=== PATIENT | male | born 1955 | race Caucasian/White ===

== ENCOUNTER 2022-07-25 22:44 | Emergency (ER) | payer OTHER ==
[~2022-07-25] VITALS: Ht 177.8 cm; Wt 81.6 kg
--- NOTE | 2022-07-25 23:06 | NUR ---
Ambulated to room with family, informed of plan of care and placed on monitor. No s/s of any distress noted, denies any changes in vision at this time. Awaiting MD exam.
[2022-07-25] MEDS ORDERED: TETRACAINE HCL 0.5% OPHT DROP 2 ML BOTTLE ONE (23:21)
[2022-07-25] MEDS ORDERED: FLUORESCEIN SODIUM 1 MG STRIP ONE (23:22)
[2022-07-25] MEDS ORDERED: TETRACAINE HCL 0.5% OPHT DROP 2 ML BOTTLE OP ONE (23:30)
[2022-07-25] MEDS ORDERED: FLUORESCEIN SODIUM 1 MG STRIP OP ONE (23:30)
[2022-07-26 00:08] VITALS: BP 158/76
--- NOTE | 2022-07-26 00:09 | NUR ---
ACI given states understanding, remains stable for discharge home with family.
== END 2022-07-26 00:10 | disposition home or self-care (01) ==
LOC: ER 22:44
DX: H11.32 Conjunctival hemorrhage, left eye (principal); E11.9 Type 2 diabetes mellitus without complications; E78.00 Pure hypercholesterolemia, unspecified
CPT/HCPCS: A4663

== ENCOUNTER 2023-10-30 16:31 | Emergency (ER) | payer OTHER ==
[~2023-10-30] VITALS: Ht 177.8 cm; Wt 81.6 kg
[2023-10-30] MEDS ORDERED: INSULIN (17:01)
[2023-10-30] MEDS ORDERED: PAXIL (17:01)
[2023-10-30 17:54] LABS: *BILIRUBIN,URIN NEGATIVE (NEGATIVE); *BLOOD, URINE NEGATIVE (NEGATIVE); *CLARITY,URINE CLEAR (CLEAR); *COLOR,URINE YELLOW (YELLOW); *KETONES,URINE NEGATIVE (NEGATIVE); *PROTEIN,URINE NEGATIVE (NEGATIVE); *UROBILINOGEN,URINE 0.2 E.U./dl (NORMAL); LEUKOCYTE ESTERASE ,URINE NEGATIVE (NEGATIVE); NITRITE, URINE NEGATIVE (NEGATIVE); UGLUCOSE TRACE (NEGATIVE)
[2023-10-30] MEDS ORDERED: CEFTRIAXONE 1 G VIAL ONE (18:11)
[2023-10-30] MEDS ORDERED: AZITHROMYCIN 250 MG TABLET ONE (18:11)
[2023-10-30 18:17] LABS: BASOPHILS % (AUTO) 0.5 % (0.0-2.0); EOSINOPHILS % (AUTO) 0.7 % (0.0-7.0); HEMATOCRIT 36.5 % (36.7-47.1); HEMOGLOBIN 12.2 g/dL (12.5-16.3); LYMPHOCYTES # (AUTO) 0.8 K/uL (0.8-4.8); LYMPHOCYTES % (AUTO) 12.5 % (20.5-51.5); MEAN CORPUSCULAR HEMOGLOBIN 29.6 uug (23.8-33.4); MEAN CORPUSCULAR HGB CONC 33 g/dL (32.5-36.3); MEAN CORPUSCULAR VOLUME 88.5 fL (73.0-96.2); MONOCYTES # (AUTO) 0.8 K/uL (0.1-1.30); MONOCYTES % (AUTO) 13.1 % (0.0-11.0); NEUTROPHILS # (AUTO) 4.4 K/uL (1.8-8.9); NEUTROPHILS % (AUTO) 73.2 % (38.5-71.5); PLATELET COUNT (AUTO) 237 K/uL (152-348); RED BLOOD CELL COUNT(AUTO) 4.12 MIL/uL (4.06-5.63); RED CELL DISTRIBUTION WIDTH 13.9 % (12.1-16.2)
[2023-10-30 18:18] LABS: RBC,URINE NONE SEEN /HPF (0-3); SQUAMOUS EPITHELIAL CELL,UR FEW /HPF (NONE SEEN); WBC,URINE NONE SEEN /HPF (0-3)
[2023-10-30 18:24] LABS: DIFFERENTIAL COMMENT 1
[2023-10-30 18:27] LABS: CALCIUM 9.2 mg/dL (8.5-10.1); CARBON DIOXIDE 28 mmol/L (21-32); CHLORIDE 100 mmol/L (98-107); CREATININE 1.2 mg/dL (0.6-1.3); GLUCOSE 267 mg/dL (74-106); POTASSIUM 4.2 mmol/L (3.5-5.1); SODIUM SERUM 136 mmol/L (136-145); UREA NITROGEN, BLOOD 17 mg/dL (7-18)
[2023-10-30] MEDS: IV NORMAL SALINE 1000 ML BAG IV ONE (18:38)
[2023-10-30 18:39] LABS: ALANINE AMINOTRANSFERASE 19 U/L (16-63); ALBUMIN 3.8 g/dL (3.4-5.0); ALKALINE PHOSPHATASE 55 U/L (50-136); ASPARTATE AMINOTRANSFERASE 7 U/L (15-37); BILIRUBIN,DIRECT 0.1 mg/dL (0.0-0.2); BILIRUBIN,TOTAL 0.5 mg/dL (0.2-1.0); NT-PRO BNP 99 pg/mL (0-125); TOTAL PROTEIN, SERUM 7.5 g/dL (6.4-8.2)
[2023-10-30] MEDS: AZITHROMYCIN 250 MG TABLET PO ONE (18:39)
[2023-10-30] MEDS: CEFTRIAXONE 2 G in IV DEXTROSE 5% 100 ML IV ONE (18:39)
[2023-10-30] MEDS ORDERED: ACETAMINOPHEN 500 MG TABLET ONE (19:23)
[2023-10-30] MEDS: ACETAMINOPHEN 500 MG TABLET PO ONE (19:25)
[2023-10-30 20:03] VITALS: BP 121/63; TEMP 99.6; O2SAT 99
== END 2023-10-30 20:04 | disposition home or self-care (01) ==
LOC: ER 16:32
DX: U07.1 COVID-19 (principal); R53.1 Weakness; E11.9 Type 2 diabetes mellitus without complications; Z79.899 Other long term (current) drug therapy; Z60.2 Problems related to living alone
CPT/HCPCS: 99291; 96365; 71045; 87426; 87804 ×2; 80076; 80048; 81001; 83880; 85025; 84145; 85730; 87040 ×2; 84484; 36415; 93005; 83605; 87086; J0696 ×2; J7040 ×2; A4606; A4663; A9150; Q0144

== ENCOUNTER 2024-07-27 10:40 | Emergency (ER) | payer OTHER ==
[~2024-07-27] VITALS: Ht 172.7 cm; Wt 74.8 kg
[~2024-07-27 10:40] MED LIST: INSULIN; PAXIL
[2024-07-27] MEDS ORDERED: PRED50TA PO (12:05)
[2024-07-27] MEDS ORDERED: AMOX-430 PO (12:05)
[2024-07-27 12:15] VITALS: BP 119/53; O2SAT 97
== END 2024-07-27 12:16 | disposition home or self-care (01) ==
LOC: ER 10:40
DX: H66.92 Otitis media, unspecified, left ear (principal); E11.9 Type 2 diabetes mellitus without complications; E78.5 Hyperlipidemia, unspecified; I25.10 Atherosclerotic heart disease of native coronary artery without angina pectoris; Z79.52 Long term (current) use of systemic steroids; Z95.5 Presence of coronary angioplasty implant and graft; Z20.822 Contact with and (suspected) exposure to COVID-19; Z60.2 Problems related to living alone
CPT/HCPCS: A4606; A4663